=== PATIENT | female | born 1985 | race American Indian/Alaskan Native ===

== ENCOUNTER → 2024-06-23 | Outpatient (CLI) | payer OTHER, SELFPAY ==
--- NOTE | 2024-06-23 13:00 | XR_ITS ---
Examination: Breast ultrasound, unilateral, right complete Date and time of exam: June 23, 2024 1407 hours INDICATIONS: Mammogram May 07, 2024 20 mm focal asymmetry inner right breast 3.9 cm from the nipple, family history breast cancer Technique: Real-time perez scale ultrasonographic imaging performed right breast including all 4 quadrants as well as nipple retroareolar and axillary region. Findings: No cystic or solid mass IMPRESSION: BI-RADS Category 1: Negative study
--- NOTE | 2024-06-23 13:30 | XR_ITS ---
Examination: Diagnostic digital mammography, unilateral, right Computer aided detection 3-D breast Tomosynthesis, unilateral Date and time of exam: June 23, 2024 1415 hours INDICATIONS: Mammogram May 07, 2024 20 mm focal asymmetry inner right breast Technique: Nonmagnified MLO, CC views of the right breast have been obtained, reconstructed from 3-D Tomosynthesis images. R2 computer aided detection program utilized for evaluation of suspicious masses and/or abnormal calcifications. 3-D Tomosynthesis images obtained. Findings: The breast is heterogeneously dense, which may obscure small masses Focal asymmetry remains 15 mm retroareolar region right breast on the spot compression both MLO and CC views Impression: BI-RADS category 3: Probably benign findings One additional 6 month right mammogram follow-up is needed to document stability 15 mm retroareolar nodule
== END | disposition home or self-care (01) ==
LOC: CDIM 13:29
PROVIDERS: PCP Physician Assistant; Referring Provider Physician Assistant; Visit Provider Physician Assistant
DX: R92.331 Mammographic heterogeneous density, right breast (principal); N63.41 Unspecified lump in right breast, subareolar; Z80.3 Family history of malignant neoplasm of breast
CPT/HCPCS: 76641; 77061; 77065; G0279

== ENCOUNTER → 2024-09-22 | Outpatient (CLI) | payer OTHER, SELFPAY ==
--- NOTE | 2024-09-22 | XR_ITS ---
Examination: CT chest with intravenous contrast CT abdomen with intravenous contrast CT pelvis with intravenous contrast CT chest without intravenous contrast CT abdomen without intravenous contrast CT pelvis without intravenous contrast 2-D coronal and sagittal reconstructions Time of exam: September 22, 2024 at 1207 hours INDICATIONS: Right upper abdominal pain left upper abdominal pain with hematuria beginning one year ago CTDI: vol (mGy) : 14.4 DLP: (mGycm): 758 Technique: Multiple axial images of the chest, abdomen and pelvis with intravenous contrast, 3.0 mm slice thickness. Images obtained post intravenous injection Isovue 370 60 cc. 2-D sagittal and coronal reconstructions. Low dose protocols were performed. One or more of the following dose reduction techniques were used; automated exposure control, adjustment of the mA and/or KV according to patient size, use of iterative reconstruction technique. Findings: No thoracic aortic aneurysmal dilatation No pulmonary artery emboli No paratracheal tracheobronchial or bronchopulmonary adenopathy No pneumonia or pulmonary edema or pleural disease No visualized liver or splenic lesion Contracted gallbladder No pancreatic mass Tiny 1 mm multiple right renal calculi, no hydronephrosis or ureteral calculi Aorta normal size Normal appendix No bowel obstruction Moderate osteopenia IMPRESSION: No mediastinal lymphadenopathy No pneumonia, pulmonary edema or pleural disease Tiny nonobstructing right renal calculi
[2024-09-22 11:52] LABS: HCG Qualitative,Urine Negative
== END | disposition home or self-care (01) ==
LOC: CCTX 10:50
PROVIDERS: PCP Internal Medicine; Referring Provider Internal Medicine; Visit Provider Internal Medicine
DX: N20.0 Calculus of kidney (principal); Z32.00 Encounter for pregnancy test, result unknown
CPT/HCPCS: 71270; 74178; 81025; A4649; Q9967